=== PATIENT | male | born 1960 | race African-American/Black ===

== ENCOUNTER 2016-09-01 06:47 | Outpatient (CLI) | payer OTHER, SELFPAY ==
[2016-09-01 07:47] LABS: ALT (SGPT) 51 U/L (0-55); AST (SGOT) 51 U/L (5-34); Albumin 4.3 g/dL (3.5-5.0); Alkaline Phosphatase 68 U/L (40-150); Anion Gap 15 mmol/L (10-20); BUN (Urea Nitrogen) 16 mg/dL (8.4-25.7); Bilirubin, Total 1.5 mg/dL (0.2-1.2); Calc. Creatinine Clearance 0 mL/min (70-130); Calcium 9.4 mg/dL (7.8-10.44); Carbon Dioxide 27 mmol/L (22-29); Cardiac Risk 2.6 (Less than 4.5); Chloride 105 mmol/L (98-107); Cholesterol 84 mg/dL (< 200 Desired); Estimated GFR-MDRD 74; Globulin 3.3 g/dL (2.4-3.5); Glucose 114 mg/dL (70-105); HDL Cholesterol 32 mg/dL (>60 Neg Risk); LDL Cholesterol, Calculated 36 mg/dL; Potassium 3.8 mmol/L (3.5-5.1); Protein, Total 7.6 g/dL (6.0-8.3); Sodium 143 mmol/L (136-145); Triglycerides 78 mg/dL (Less than 150)
== END 2016-09-01 06:48 | disposition home or self-care (01) ==
LOC: MADLAB 06:47
PROVIDERS: ATTEND Internal Medicine Cardiovascular Disease
DX: E78.00 Pure hypercholesterolemia, unspecified (principal)
CPT/HCPCS: 36415; 80053; 80061; 84443

== ENCOUNTER 2016-12-16 20:53 | Emergency (ER) | payer OTHER ==
[~2016-12-16 20:53] MED LIST: Sodium Chloride 0.9% 100 ML BAG ONE; Sodium Chloride 0.9% 500 ML BAG ONE
[2016-12-16] MEDS ORDERED: Ondansetron HCl/PF 4 MG/2 ML Vial ONE (21:26)
[2016-12-16 21:51] LABS: #Basophils 0.1 thou/uL (0.0-0.2); #Eosinphils 0.1 thou/uL (0.0-0.7); #Lymphocytes 3.2 thou/uL (1.20-3.40); #Monocytes 0.6 thou/uL (0.11-0.59); #Neutrophils 3.3 thou/uL (1.40-6.50); %Basophils 1.5 % (0.0-1.0); %Eosinophils 1.9 % (0.0-10.0); %Lymphocytes 44.1 % (21.0-51.0); %Monocytes 7.5 % (0.0-10.0); Mean Corpuscular HGB CONC 32.2 g/dL (32.0-36.0); Mean Corpuscular Hemoglobin 27.5 pg (27.0-31.0); Mean Corpuscular Volume 85.2 fl (80.0-94.0); Mean Platelet Volume 11.3 fL (7.4-10.4); Platelet Count 173 thou/uL (130-400); RBC Distribution Width 14.1 % (11.5-14.5); Red Blood Cell (RBC) Count 5.48 mill/uL (4.70-6.10); White Blood Cell (WBC) Count 7.4 thou/uL (4.8-10.8)
[2016-12-16 21:58] LABS: Anion Gap 12 mmol/L (10-20); BUN (Urea Nitrogen) 18 mg/dL (8.4-25.7); Calc. Creatinine Clearance 0 mL/min (70-130); Calcium 8.7 mg/dL (7.8-10.44); Carbon Dioxide 25 mmol/L (22-29); Chloride 111 mmol/L (98-107); Estimated GFR-MDRD 79; Glucose 98 mg/dL (70-105); Potassium 3.6 mmol/L (3.5-5.1); Sodium 144 mmol/L (136-145)
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
[2016-12-16] MEDS ORDERED: Tamsulosin HCl 0.4 MG CAP ONE (23:00)
[2016-12-16] MEDS ORDERED: Ketorolac Tromethamine 30 MG/ML VIAL ONE (23:00)
[2016-12-16 23:30] LABS: Bilirubin Negative (Negative); Blood, Urine Large (Negative); Clarity Hazy (Clear); Glucose, Urine (Dipstick) Negative (Negative); Leukocyte Negative (Negative); Nitrite Negative (Negative); Protein, Urine (Dipstick) Negative (Neg-Trace)
[2016-12-16 23:32] LABS: Bacteria/HPF Rare-Few HPF (None Seen); Squamous Epithelial 0-3 HPF (0-3); WBC/HPF 0-3 HPF (0-3)
[2016-12-16] MEDS ORDERED: Promethazine HCl 25 MG/ML VIAL ONE (23:47)
== END 2016-12-17 01:01 | disposition home or self-care (01) ==
LOC: MADERS 20:53
DX: N13.2 Hydronephrosis with renal and ureteral calculous obstruction (principal); E78.5 Hyperlipidemia, unspecified; I10 Essential (primary) hypertension; I25.10 Atherosclerotic heart disease of native coronary artery without angina pectoris; F17.210 Nicotine dependence, cigarettes, uncomplicated; Z79.82 Long term (current) use of aspirin; Z79.899 Other long term (current) drug therapy
CPT/HCPCS: 74176; 80048; 81003; 81015; 85025; 96361; 96365; 96375; J1885; J2270; J2405; J2550; J7050

== ENCOUNTER 2017-03-09 08:13 | Emergency (ER) | payer OTHER ==
[2017-03-09] MEDS ORDERED: Dexamethasone 4 MG TAB ONE (09:25)
== END 2017-03-09 09:40 | disposition home or self-care (01) ==
LOC: MADERS 08:13
DX: S39.012A Strain of muscle, fascia and tendon of lower back, initial encounter (principal); I25.10 Atherosclerotic heart disease of native coronary artery without angina pectoris; I10 Essential (primary) hypertension; E78.5 Hyperlipidemia, unspecified; F17.210 Nicotine dependence, cigarettes, uncomplicated; Z79.899 Other long term (current) drug therapy; Z79.82 Long term (current) use of aspirin; W18.30XA Fall on same level, unspecified, initial encounter
CPT/HCPCS: 99283; J8540

== ENCOUNTER 2017-03-16 15:16 | Outpatient (CLI) | payer OTHER ==
[2017-03-16 16:08] LABS: ALT (SGPT) 44 U/L (8-55); AST (SGOT) 41 U/L (5-34); Albumin 3.8 g/dL (3.5-5.0); Alkaline Phosphatase 66 U/L (40-150); Anion Gap 9 mmol/L (10-20); BUN (Urea Nitrogen) 18 mg/dL (8.4-25.7); Bilirubin, Total 1.1 mg/dL (0.2-1.2); Calc. Creatinine Clearance 0 mL/min (70-130); Calcium 8.9 mg/dL (7.8-10.44); Carbon Dioxide 28 mmol/L (22-29); Cardiac Risk 2.9 (Less than 4.5); Chloride 109 mmol/L (98-107); Cholesterol 75 mg/dl (< 200 Desired); Estimated GFR-MDRD 75; Glucose 100 mg/dL (70-105); HDL Cholesterol 26 mg/dL (>60 Neg Risk); LDL Cholesterol, Calculated 31 mg/dL; Potassium 3.8 mmol/L (3.5-5.1); Protein, Total 6.8 g/dL (6.0-8.3); Sodium 142 mmol/L (136-145); Triglycerides 92 mg/dL (Less than 150)
== END 2017-03-16 15:17 | disposition home or self-care (01) ==
LOC: MADLAB 15:16
PROVIDERS: ATTEND Internal Medicine Cardiovascular Disease
DX: E78.00 Pure hypercholesterolemia, unspecified (principal)
CPT/HCPCS: 36415; 80053; 80061

== ENCOUNTER 2017-12-01 12:48 | Emergency (ER) | payer OTHER ==
[~2017-12-01 12:48] MED LIST changes: +Nitroglycerin 0.4 MG TAB (25 Tab Bottle) ONE; -Sodium Chloride 0.9% 100 ML BAG ONE; -Sodium Chloride 0.9% 500 ML BAG ONE
[2017-12-01 13:10] LABS: #Basophils 0.1 thou/uL (0.0-0.2); #Eosinphils 0.1 thou/uL (0.0-0.7); #Monocytes 0.4 thou/uL (0.11-0.59); #Neutrophils 3.2 thou/uL (1.40-6.50); %Basophils 1.2 % (0.0-1.0); %Eosinophils 2.1 % (0.0-10.0); %Lymphocytes 43.9 % (21.0-51.0); %Monocytes 6.2 % (0.0-10.0); %Neutrophils 46.7 % (42.0-75.0); Hemoglobin 15.4 g/dL (14.0-18.0); Mean Corpuscular HGB CONC 31.7 g/dL (32.0-36.0); Mean Platelet Volume 10.9 fL (7.4-10.4); Platelet Count 166 thou/uL (130-400); RBC Distribution Width 14.6 % (11.5-14.5); Red Blood Cell (RBC) Count 5.92 mill/uL (4.70-6.10); White Blood Cell (WBC) Count 6.7 thou/uL (4.8-10.8)
--- NOTE | 2017-12-01 13:24 | RAD ---
PORTABLE CHEST 1 VIEW: Date: 12/01/17 Time: 1244 hours HISTORY: Chest pain. FINDINGS: Comparison made with exam of 08/14/10. The heart size is normal. Changes of median sternotomy are again seen. The lungs are expanded without focal areas of consolidation, pneumothoraces, or pleural effusions. There are degenerative changes i n the acromioclavicular joints. IMPRESSION: No radiographic evidence of acute cardiopulmonary process. POS: [facility]
[2017-12-01 13:25] LABS: ALT (SGPT) 46 U/L (8-55); AST (SGOT) 40 U/L (5-34); Alkaline Phosphatase 62 U/L (40-150); Anion Gap 14 mmol/L (10-20); BUN (Urea Nitrogen) 14 mg/dL (8.4-25.7); Bilirubin, Total 1.3 mg/dL (0.2-1.2); CK (CPK) 221 U/L (30-200); Calc. Creatinine Clearance 0 mL/min (70-130); Carbon Dioxide 27 mmol/L (22-29); Chloride 106 mmol/L (98-107); Estimated GFR-MDRD 77; Glucose 100 mg/dL (70-105); Lipase 9 U/L (8-78); Potassium 3.6 mmol/L (3.5-5.1); Sodium 143 mmol/L (136-145)
[2017-12-01 13:26] LABS: CKMB 1.9 ng/mL (0-6.6); Troponin I Less than 0.010 ng/mL (< 0.028)
[2017-12-01] MEDS ORDERED: Nitroglycerin 2% Ointment 1 INCH/1 GM Packet ONE (14:04)
== END 2017-12-01 14:45 | disposition short-term general hospital (02) ==
LOC: MADERS 12:48
DX: R07.9 Chest pain, unspecified (principal); I10 Essential (primary) hypertension; I25.10 Atherosclerotic heart disease of native coronary artery without angina pectoris; F17.210 Nicotine dependence, cigarettes, uncomplicated; E78.5 Hyperlipidemia, unspecified; Z79.899 Other long term (current) drug therapy; Z79.891 Long term (current) use of opiate analgesic
CPT/HCPCS: 71045; 80053; 82553; 83690; 83880; 84484; 85025; 93005; 94760

== ENCOUNTER 2018-03-05 03:22 | Emergency (ER) | payer SELFPAY ==
[2018-03-05] MEDS ORDERED: Nitroglycerin 2% Ointment 1 INCH/1 GM Packet ONE (04:04)
[2018-03-05] MEDS ORDERED: Nitroglycerin 0.4 MG TAB (25 Tab Bottle) ONE (04:04)
[2018-03-05 04:07] LABS: #Basophils 0.1 thou/uL (0.0-0.2); #Eosinphils 0.1 thou/uL (0.0-0.7); #Lymphocytes 3.4 thou/uL (1.20-3.40); #Monocytes 0.5 thou/uL (0.11-0.59); #Neutrophils 2.9 thou/uL (1.40-6.50); %Basophils 1.4 % (0.0-1.0); %Eosinophils 1.6 % (0.0-10.0); %Lymphocytes 48.1 % (21.0-51.0); %Monocytes 7.3 % (0.0-10.0); %Neutrophils 41.5 % (42.0-75.0); Mean Corpuscular Hemoglobin 27.8 pg (27.0-31.0); Mean Corpuscular Volume 86.8 fL (78.0-98.0); Mean Platelet Volume 11.8 fL (7.4-10.4); Platelet Count 160 thou/uL (130-400); RBC Distribution Width 13.9 % (11.5-14.5); Red Blood Cell (RBC) Count 5.41 mill/uL (4.70-6.10)
[2018-03-05 04:30] LABS: ALT (SGPT) 22 U/L (8-55); AST (SGOT) 29 U/L (5-34); Albumin 3.6 g/dL (3.5-5.0); Alkaline Phosphatase 57 U/L (40-150); Anion Gap 12 mmol/L (10-20); BUN (Urea Nitrogen) 11 mg/dL (8.4-25.7); Bilirubin, Total 0.6 mg/dL (0.2-1.2); CK (CPK) 312 U/L (30-200); Calc. Creatinine Clearance 0 mL/min (70-130); Calcium 9.3 mg/dL (7.8-10.44); Carbon Dioxide 25 mmol/L (22-29); Chloride 110 mmol/L (98-107); Estimated GFR-MDRD 85; Globulin 2.8 g/dL (2.4-3.5); Glucose 98 mg/dL (70-105); Potassium 3.5 mmol/L (3.5-5.1); Protein, Total 6.4 g/dL (6.0-8.3); Sodium 143 mmol/L (136-145)
[2018-03-05] MEDS ORDERED: Enoxaparin Sodium 60 MG/0.6 ML SYRINGE ONE (05:15)
--- NOTE | 2018-03-05 09:37 | RAD ---
CHEST UPRIGHT PORTABLE: HISTORY: A 57-year-old male with a history of chest pain. COMPARISON: 12/01/17. FINDINGS: Heart size is within normal limits. Postop midline sternotomy. NO confluent pneumonia, overt edema, pleural effusion, or other acute process. IMPRESSION: Stable chest. No significant new process. POS: [facility]
== END 2018-03-05 05:46 | disposition short-term general hospital (02) ==
LOC: MADERS 03:22
DX: I21.4 Non-ST elevation (NSTEMI) myocardial infarction (principal); E78.5 Hyperlipidemia, unspecified; I25.10 Atherosclerotic heart disease of native coronary artery without angina pectoris; F17.210 Nicotine dependence, cigarettes, uncomplicated; I10 Essential (primary) hypertension; Z86.73 Personal history of transient ischemic attack (TIA), and cerebral infarction without residual deficits; Z79.899 Other long term (current) drug therapy; Z79.891 Long term (current) use of opiate analgesic; Z79.82 Long term (current) use of aspirin
CPT/HCPCS: 36415; 71045; 80053; 82550; 83880; 84484; 85025; 93005; 94760; 96372; J1650

== ENCOUNTER 2019-01-12 05:07 | Emergency (ER) | payer SELFPAY ==
[2019-01-12 05:37] LABS: Bilirubin Negative (Negative); Blood, Urine Large (Negative); Clarity Cloudy (Clear); Glucose, Urine (Dipstick) Negative (Negative); Leukocyte Trace (Negative); Nitrite Negative (Negative); Protein, Urine (Dipstick) Negative (Neg-Trace); Urobilinogen 0.2 mg/dL (Less than 2)
[2019-01-12 05:41] LABS: Bacteria/HPF None Seen HPF (None Seen); RBC/HPF Greater than 50 HPF (0-3); Squamous Epithelial 0-3 HPF (0-3)
[2019-01-12] MEDS ORDERED: Ciprofloxacin 500 MG TAB ONE (05:50)
== END 2019-01-12 05:58 | disposition home or self-care (01) ==
LOC: MADERS 05:07
DX: N39.0 Urinary tract infection, site not specified (principal); I10 Essential (primary) hypertension; I25.2 Old myocardial infarction; E78.5 Hyperlipidemia, unspecified; F17.210 Nicotine dependence, cigarettes, uncomplicated; I25.10 Atherosclerotic heart disease of native coronary artery without angina pectoris; Z79.899 Other long term (current) drug therapy; Z79.891 Long term (current) use of opiate analgesic; Z79.82 Long term (current) use of aspirin
CPT/HCPCS: 81003; 81015; 87086; 99283

== ENCOUNTER 2020-11-26 14:18 | Emergency (ER) | payer SELFPAY ==
[2020-11-26] MEDS ORDERED: HYDROcodone/Acetaminophen 5/325 mg Tablet ONE (16:04)
[2020-11-26] MEDS ORDERED: predniSONE 20 MG TAB ONE (16:04)
== END 2020-11-26 16:15 | disposition home or self-care (01) ==
LOC: MADERS 14:18
DX: M54.42 Lumbago with sciatica, left side (principal); I25.2 Old myocardial infarction; E78.5 Hyperlipidemia, unspecified; I10 Essential (primary) hypertension; F17.210 Nicotine dependence, cigarettes, uncomplicated; Z79.899 Other long term (current) drug therapy; Z79.82 Long term (current) use of aspirin
CPT/HCPCS: 99284; J7512

== ENCOUNTER 2021-03-09 10:50 | Emergency (ER) | payer OTHER, SELFPAY ==
[2021-03-09] MEDS ORDERED: Fentanyl 100 MCG/2 ML VIAL ONE (11:41)
[2021-03-09] MEDS ORDERED: Midazolam HCl 2 mg/2 ml Vial ONE (11:41)
== END 2021-03-09 13:17 | disposition home or self-care (01) ==
LOC: MADERS 10:50
DX: S03.03XA Dislocation of jaw, bilateral, initial encounter (principal); I25.2 Old myocardial infarction; E78.5 Hyperlipidemia, unspecified; E78.00 Pure hypercholesterolemia, unspecified; I10 Essential (primary) hypertension; I25.10 Atherosclerotic heart disease of native coronary artery without angina pectoris; F17.210 Nicotine dependence, cigarettes, uncomplicated; Z79.82 Long term (current) use of aspirin; Z79.02 Long term (current) use of antithrombotics/antiplatelets; Z79.899 Other long term (current) drug therapy; X58.XXXA Exposure to other specified factors, initial encounter
CPT/HCPCS: 21480; 70330; 99152; J2250; J3010

== ENCOUNTER 2023-11-22 07:10 | Emergency (ER) | payer BC ==
[2023-11-22 07:55] LABS: Bilirubin Negative (Negative); Blood, Urine Trace (Negative); Clarity Clear (Clear); Glucose, Urine (Dipstick) 100 mg/dL (Negative); Ketone, Urine Negative (Negative); Leukocyte Negative (Negative); Nitrite Negative (Negative); Protein, Urine (Dipstick) Trace mg/dL (Neg-Trace); Urobilinogen 0.2 mg/dL (Less than 2); pH, Urine 6.5 (5.0-9.0)
[2023-11-22 08:03] LABS: CAUTI Indications for Culture Acute Hematuria; Squamous Epithelial 0-3 HPF (0-3); WBC/HPF 0-3 HPF (0-3)
[2023-11-22 08:05] LABS: Urine Culture Reflex No No
== END 2023-11-22 08:35 | disposition home or self-care (01) ==
LOC: MADERS 07:10
DX: R31.9 Hematuria, unspecified (principal); H92.02 Otalgia, left ear; H73.92 Unspecified disorder of tympanic membrane, left ear; E78.00 Pure hypercholesterolemia, unspecified; I10 Essential (primary) hypertension; F17.210 Nicotine dependence, cigarettes, uncomplicated; Z79.82 Long term (current) use of aspirin; Z79.899 Other long term (current) drug therapy; Z79.01 Long term (current) use of anticoagulants
CPT/HCPCS: 81001; 99283

== ENCOUNTER 2025-04-17 17:35 | Emergency (ER) | payer BC, MEDICARE, SELFPAY ==
[2025-04-17 18:02] LABS: #Basophils 0.1 thou/uL (0.0-0.2); #Eosinophils 0.1 thou/uL (0.0-0.7); #Lymphocytes 1.7 thou/uL (1.20-3.40); #Monocytes 0.5 thou/uL (0.11-0.59); #Neutrophils 4.4 thou/uL (1.40-6.50); %Basophils 1.4 % (0.0-1.0); %Eosinophils 1.4 % (0.0-10.0); %Lymphocytes 25.1 % (21.0-51.0); %Monocytes 7.3 % (0.0-10.0); %Neutrophils 64.9 % (42.0-75.0); Hematocrit 45.0 % (42.0-52.0); Hemoglobin 14.0 g/dL (14.0-18.0); Mean Corpuscular Hemoglobin 28.1 pg (27.0-31.0); Mean Corpuscular Volume 90.4 fl (78.0-98.0); Platelet Count 145 10x3/uL (130-400); Red Blood Cell (RBC) Count 4.98 mill/uL (4.70-6.10); White Blood Cell (WBC) Count 6.8 10x3/uL (4.8-10.8)
[2025-04-17] MEDS ORDERED: Nitroglycerin 0.4 MG TAB 1 EACH ONE ×2 (18:09→18:23)
[2025-04-17] MEDS ORDERED: Aspirin 325 MG TAB ONE (18:09)
[2025-04-17 18:17] LABS: ALT (SGPT) 23 U/L (Less than 45); AST (SGOT) 109 U/L (11-34); Albumin 4.1 g/dL (3.1-4.5); Alkaline Phosphatase 60 U/L (40-110); Anion Gap 15 mmol/L (10-20); BUN (Urea Nitrogen) 14 mg/dL (8.4-25.7); Bilirubin, Total 0.9 mg/dL (0.3-1.2); Calc. Creatinine Clearance 0 mL/min (70-130); Calcium 9.1 mg/dL (7.8-10.44); Carbon Dioxide 24 mmol/L (23-31); Chloride 102 mmol/L (98-107); Globulin 3.0 g/dL (2.4-3.5); Glucose 114 mg/dL (80-115); Potassium 3.8 mmol/L (3.5-5.1); Sodium 137 mmol/L (136-145)
[2025-04-17] MEDS ORDERED: Ondansetron PF 4 MG/2 ML Vial ONE (18:34)
[2025-04-17 18:59] LABS: Troponin I 19.130 ng/mL (< 0.028)
[2025-04-17] MEDS ORDERED: Enoxaparin 60 MG (0.6 mL) SYRINGE ONE (19:12)
== END 2025-04-17 20:07 | disposition short-term general hospital (02) ==
LOC: MADERS 17:35
DX: I21.4 Non-ST elevation (NSTEMI) myocardial infarction (principal); E78.00 Pure hypercholesterolemia, unspecified; I10 Essential (primary) hypertension; I25.10 Atherosclerotic heart disease of native coronary artery without angina pectoris; F17.210 Nicotine dependence, cigarettes, uncomplicated; Z79.82 Long term (current) use of aspirin; Z79.02 Long term (current) use of antithrombotics/antiplatelets; Z79.899 Other long term (current) drug therapy
CPT/HCPCS: 71045; 80053; 83880; 84484; 85025; 85379; 93005; 96372; 96374; 96375; J1650; J2270; J2405; J7030